=== PATIENT | female | born 1970 | race Two or more races ===

== ENCOUNTER 2019-03-17 06:37 | Day surgery (SDC) | payer OTHER ==
[~2019-03-17] VITALS: Ht 170.2 cm; Wt 127.0 kg
[2019-03-17] MEDS ORDERED: LIDOCAINE 2% 100 MG/5 ML UJET TP ONE (08:53)
[2019-03-17] MEDS ORDERED: fentaNYL 0.05 MG/ML VIAL ONE (08:53)
== END 2019-03-17 10:15 | disposition home or self-care (01) ==
LOC: MDS 06:37 → MMU 06:40 → MDS 10:15
PROVIDERS: ATTEND Internal Medicine Gastroenterology
DX: K62.5 Hemorrhage of anus and rectum (principal); E66.01 Morbid (severe) obesity due to excess calories; Z88.0 Allergy status to penicillin; Z88.1 Allergy status to other antibiotic agents
CPT/HCPCS: 45378; 81025; J3010